=== PATIENT | male | born 1995 | race Caucasian/White ===

== ENCOUNTER 2018-08-13 00:07 | Emergency (ER) | payer BC ==
[~2018-08-13] VITALS: Ht 180.3 cm; Wt 129.3 kg
[2018-08-13 00:13] VITALS: BP 145/77
[2018-08-13] MEDS ORDERED: LIDOCAINE-MPF 1%, 5ML ONE ×2 (00:37→01:11)
[2018-08-13] MEDS ORDERED: LIDOCAINE-MPF 1%, 5ML INFIL ONE (01:00)
--- NOTE | 2018-08-13 01:31 | NUR ---
ERP AT BEDSIDE FOR SUTURE
--- NOTE | 2018-08-13 02:03 | NUR ---
DC EDUCATION PROVIDED, PT DEMONSTRATES UNDERSTANDING. PT AMBULATED STEADILY TO DC WITH RN AND FRIENDS.
== END 2018-08-13 02:06 | disposition home or self-care (01) ==
LOC: ED 00:51
DX: S01.511A Laceration without foreign body of lip, initial encounter (principal); F17.200 Nicotine dependence, unspecified, uncomplicated; Z88.2 Allergy status to sulfonamides; Y08.89XA Assault by other specified means, initial encounter; Y93.89 Activity, other specified; Y92.89 Other specified places as the place of occurrence of the external cause; Y99.8 Other external cause status
CPT/HCPCS: 12011; 12051; 99285